=== PATIENT | female | born 1965 | race Caucasian/White ===

== ENCOUNTER 2016-10-28 07:52 | Inpatient (IN) | payer MEDICAID ==
[2016-10-28 08:25] LABS: UA w/ MICROSCOPIC CHARGE YES
[2016-10-28 08:27] LABS: BASOPHILS # (AUTO) 0.1 10^3/uL (0.0-0.1); BASOPHILS % (AUTO) 0.8 %; EOSINOPHILS % (AUTO) 0.1 %; HGB - HEMOGLOBIN 14.1 g/dL (12.0-16.0); LYMPHOCYTES # (AUTO) 1.5 10^3/uL (1.5-3.5); LYMPHOCYTES % (AUTO) 15.3 %; MEAN CORPUSCULAR HGB CONC 32.8 g/dL (32.0-36.0); MEAN CORPUSCULAR VOLUME 85.3 fL (81.0-99.0); MONOCYTES # (AUTO) 1.4 10^3/uL (0.0-1.0); MONOCYTES % (AUTO) 14.5 %; NEUTROPHILS # (AUTO) 6.7 10^3/uL (1.5-6.6); NEUTROPHILS % (AUTO) 69.3 %; NUCLEATED RED BLOOD CELLS AUTO 0.1 /100WBC; RED BLOOD COUNT 5.04 10^6/uL (4.20-5.40); RED CELL DISTRIBUTION WIDTH 18.2 % (12.0-15.0); UNCORRECTED WHITE BLOOD COUNT 9.7 x10^3/uL; WHITE BLOOD COUNT 9.7 x10^3/uL (4.8-10.8)
--- NOTE | 2016-10-28 08:28 | ED Physician Documentation ---
History of Present Illness - Stated complaint Stated Complaint: SOA/GENERAL WEAKNESS - Chief complaint Chief Complaint: Abd Pain - Additonal information Additional information: hx from pt 51 female HTN and DM type 2 not taking her diabetes meds for 6 months secondary to insurnace lapse now has insurance again but still not taking her meds ill for several weeks generally weak all over, nauseated, poor appetite, had a sore on her right inguinal region, urinary freq now sx are worse and she is profoundly weak and can barely sit up and is short of air no SAINI CP AP no fever cough diarrhea Review of Systems Constitutional: reports: Fatigue. denies: Fever, Chills Throat: reports: Other (dry mouth) Cardiac: denies: Chest pain / pressure Respiratory: reports: Dyspnea. denies: Cough GI: reports: Nausea, Vomiting. denies: Abdominal Pain, Diarrhea : reports: Frequency. denies: Dysuria Skin: reports: Lesions (better now) Neurologic: reports: Generalized weakness. denies: Headache Endocrine: denies: Easy bruising / bleeding Immunocompromised: denies: Immunocompromised PD PAST MEDICAL HISTORY - Past Medical History Past Medical History: Yes Cardiovascular: Hypertension Endocrine/Autoimmune: Type 2 diabetes - Past Surgical History Past Surgical History: No - Present Medications Home Medications: Ambulatory Orders Medication Instructions Recorded Confirmed Lisinopril/Hydrochlorothiazide 1 tab PO BID 10/28/16 10/28/16 [Lisinopril-Hctz 10-12.5 mg Tab] - Allergies Allergies/Adverse Reactions: Allergies Allergy/AdvReac Type Severity Reaction Status Date / Time ibuprofen Allergy Severe Anaphylaxis Verified 10/28/16 17:31 codeine AdvReac Hallucinati Verified 10/28/16 17:31 ons - Social History Does the pt smoke?: No Smoking Status: Never smoker Does the pt drink ETOH?: No Does the pt have substance abuse?: No - POLST Patient has POLST: No PD ED PE NORMAL - Vitals Vital signs reviewed: Yes - General General: Alert and oriented X 3 - HEENT HEENT: PERRL, Other (very dry, ketotic breath) - Neck Neck: Supple, no meningeal sign - Cardiac Cardiac: RRR (tachy) - Respiratory Respiratory: No respiratory distress, Clear bilaterally - Abdomen Abdomen: Soft, Non tender - Back Back: No spinal TTP, Other (small skin lesion lumbar regon s redness or tenderness, no infection) - Derm Derm: Other (what appeears to be a small healed abscess or ulceration to R inguinal region but no present infection, no foot lesions) - Extremities Extremities: No deformity, Normal ROM s pain, No edema - Neuro Neuro: Alert and oriented X 3 Results - Vitals Vitals: Vital Signs - 24 hr 10/28/16 10/28/16 10/28/16 07:59 08:31 09:15 Temperature 35.8 C L Heart Rate 127 H 109 H 106 H Respiratory 22 22 16 Rate Blood Pressure 103/70 113/82 H 104/62 O2 Saturation 100 98 100 10/28/16 11:54 Temperature Heart Rate 112 H Respiratory 20 Rate Blood Pressure 98/63 O2 Saturation 97 Oxygen O2 Source Room air - EKG (time done) 0812 Rate: Rate (enter#) Rhythm: Sinus tachycardia Benedict: Normal Intervals: Normal KS, Prolonged QT (borderline) - Labs Labs: Laboratory Tests 10/28/16 10/28/16 10/28/16 08:00 08:12 08:20 WBC 9.7 RBC 5.04 Hgb 14.1 Hct 43.0 MCV 85.3 MCH 28.0 MCHC 32.8 RDW 18.2 H Plt Count 319 MPV 8.0 Neut # 6.7 H Lymph # 1.5 [place] # 1.4 H Eos # 0.0 Baso # 0.1 Absolute Nucleated RBC 0.01 Nucleated RBCs 0.1 VBG pH VBG pCO2 VBG pO2 VBG HCO3 VBG Total CO2 VBG O2 Saturation VBG Base Excess Sodium Potassium Chloride Carbon Dioxide Anion Gap BUN Creatinine Estimated GFR (MDRD) Glucose POC Whole Bld Glucose 472 H Lactic Acid Calcium Total Bilirubin AST ALT Alkaline Phosphatase Troponin I Total Protein Albumin Globulin Albumin/Globulin Ratio Lipase Urine Color YELLOW Urine Clarity HAZY Urine pH 6.0 Ur Specific [place] >=1.030 H Urine Protein 30 H Urine Glucose (UA) 500 H Urine Ketones >=80 H Urine Occult Blood MODERATE H Urine Nitrite NEGATIVE Urine Bilirubin MODERATE H Urine Urobilinogen 0.2 (NORMAL) Ur Leukocyte Esterase NEGATIVE Urine RBC 6-10 H Urine WBC 0-3 Ur Squamous Epith Cells FEW Squamous Urine Bacteria Rare Urine Casts 3-5 Granular Casts Ur Microscopic Review INDICATED Urine Culture Comments NOT INDICATED Serum Ketones 07/26/17 07/26/17 07/26/17 08:20 08:20 08:25 WBC RBC Hgb Hct MCV MCH MCHC RDW Plt Count MPV Neut # Lymph # [place] # Eos # Baso # Absolute Nucleated RBC Nucleated RBCs VBG pH 7.233 L VBG pCO2 26.4 L VBG pO2 36.4 VBG HCO3 10.9 L VBG Total CO2 11.7 L VBG O2 Saturation 66.7 VBG Base Excess -14.8 L Sodium 127 L Potassium 3.0 L Chloride 90 L Carbon Dioxide 10 L* Anion Gap 27.0 H BUN 7 Creatinine 1.1 H Estimated GFR (MDRD) 52 L Glucose 449 H POC Whole Bld Glucose Lactic Acid Calcium 10.7 H Total Bilirubin 1.6 H AST 13 ALT 17 Alkaline Phosphatase 169 H Troponin I 0.04 Total Protein 8.4 H Albumin 3.9 Globulin 4.5 H Albumin/Globulin Ratio 0.9 L Lipase 31 Urine Color Urine Clarity Urine pH Ur Specific [place] Urine Protein Urine Glucose (UA) Urine Ketones Urine Occult Blood Urine Nitrite Urine Bilirubin Urine Urobilinogen Ur Leukocyte Esterase Urine RBC Urine WBC Ur Squamous Epith Cells Urine Bacteria Urine Casts Ur Microscopic Review Urine Culture Comments Serum Ketones MODERATE H 10/28/16 10/28/16 10/28/16 08:54 10:06 10:59 WBC RBC Hgb Hct MCV MCH MCHC RDW Plt Count MPV Neut # Lymph # [place] # Eos # Baso # Absolute Nucleated RBC Nucleated RBCs VBG pH VBG pCO2 VBG pO2 VBG HCO3 VBG Total CO2 VBG O2 Saturation VBG Base Excess Sodium Potassium Chloride Carbon Dioxide Anion Gap BUN Creatinine Estimated GFR (MDRD) Glucose POC Whole Bld Glucose 323 H 246 H Lactic Acid 1.6 Calcium Total Bilirubin AST ALT Alkaline Phosphatase Troponin I Total Protein Albumin Globulin Albumin/Globulin Ratio Lipase Urine Color Urine Clarity Urine pH Ur Specific [place] Urine Protein Urine Glucose (UA) Urine Ketones Urine Occult Blood Urine Nitrite Urine Bilirubin Urine Urobilinogen Ur Leukocyte Esterase Urine RBC Urine WBC Ur Squamous Epith Cells Urine Bacteria Urine Casts Ur Microscopic Review Urine Culture Comments Serum Ketones 10/28/16 10/28/16 10/28/16 11:31 12:03 12:37 WBC RBC Hgb Hct MCV MCH MCHC RDW Plt Count MPV Neut # Lymph # [place] # Eos # Baso # Absolute Nucleated RBC Nucleated RBCs VBG pH VBG pCO2 VBG pO2 VBG HCO3 VBG Total CO2 VBG O2 Saturation VBG Base Excess Sodium Potassium Chloride Carbon Dioxide Anion Gap BUN Creatinine Estimated GFR (MDRD) Glucose POC Whole Bld Glucose 218 H 180 H 181 H Lactic Acid Calcium Total Bilirubin AST ALT Alkaline Phosphatase Troponin I Total Protein Albumin Globulin Albumin/Globulin Ratio Lipase Urine Color Urine Clarity Urine pH Ur Specific [place] Urine Protein Urine Glucose (UA) Urine Ketones Urine Occult Blood Urine Nitrite Urine Bilirubin Urine Urobilinogen Ur Leukocyte Esterase Urine RBC Urine WBC Ur Squamous Epith Cells Urine Bacteria Urine Casts Ur Microscopic Review Urine Culture Comments Serum Ketones - Rads (name of study) CXR Radiology: See rad report (NACPD) PD MEDICAL DECISION MAKING - ED course ED course: pt is in DKA unusual because she believes she has type 2 DM states she was dx 5 yr ago in [facility] and started on metformin by PMD does not sound like she had prior medical care but still doubt type 1 would go undetected until pt was in her 40s regardless she is diabetic, hyperglycemic, AG acidosis and + ketones gave IVF and started insulin gtt and repleted K no inciting event or infection found will admit to ICU for further care and work up spoke to hospitalist at 11 AM - she will write orders glucose dropping quickly on 1u/kg/hr gtt (from 472 to 246 over 3 hr), dec rate to 6 U/hr, when at FSBS 200 will change IVF to D5 1/2 N with 20 K to clear ketones and acidosis Departure - Departure Disposition: 66 [facility] DC/Xfer Clinical Impression: Hypokalemia DKA (diabetic ketoacidoses) Qualifiers: Diabetes mellitus type: type 2 Diabetes mellitus complication detail: without coma Qualified Code(s): E13.10 - Other specified diabetes mellitus with ketoacidosis without coma Condition: Serious Discharge Date/Time: 10/28/16 14:39
[2016-10-28 08:29] LABS: BILIRUBIN,URINE MODERATE (NEGATIVE)
[2016-10-28 08:32] LABS: VBG BASE EXCESS -14.8 mmol/L (-2 - +2); VBG PH 7.233 (7.31-7.41); VBG TOTAL CO2 11.7 mmol/L (24-29)
[2016-10-28 08:33] LABS: VBG OXYGEN SATURATION 66.7 % (60-80)
[2016-10-28 08:34] LABS: UR CULTURE IF IND NOT INDICATED; WBC,URINE 0-3 /HPF (0-5)
[2016-10-28] MEDS ORDERED: SODIUM CHLORIDE 0.9% 1,000 ML IV ONE ×3 (08:37→11:13)
--- NOTE | 2016-10-28 08:41 | XRAY Preliminary Report ---
Exam: XR Chest 1 View IMPRESSION: Normal single view chest. [facility] SITE ID: [id number]
--- NOTE | 2016-10-28 08:43 | XRAY Report ---
EXAM: CHEST RADIOGRAPHY EXAM DATE: 10/28/2016 08:25 AM. CLINICAL HISTORY: Soa tachy. COMPARISON: None. TECHNIQUE: 1 view. FINDINGS: Lungs/Pleura: No focal opacities evident. No pleural effusion. No pneumothorax. Mediastinum: Within exam limitations, cardiomediastinal contour is normal. Other: None. IMPRESSION: Normal single view chest. [facility] Referring Provider Line: [phone] SITE ID: [id number]
[2016-10-28 08:44] LABS: ALBUMIN/GLOBULIN RATIO 0.9 (1.0-2.2); BILIRUBIN,TOTAL 1.6 mg/dL (0.2-1.0); BUN - BLOOD UREA NITROGEN 7 mg/dL (6-20); CALCIUM 10.7 mg/dL (8.5-10.3); CHLORIDE 90 mmol/L (101-111); CREATININE 1.1 mg/dL (0.4-1.0); GFR - MDRD 52 (>89); GLUCOSE 449 mg/dL (70-100); LIPASE 31 U/L (22-51); SODIUM 127 mmol/L (135-145); TOTAL PROTEIN 8.4 g/dL (6.7-8.2)
[2016-10-28 08:45] LABS: CARBON DIOXIDE - CO2 10 mmol/L (21-32)
[2016-10-28] MEDS ORDERED: INSULIN REGULAR HUMAN 100 UNIT in SODIUM CHLORIDE 0.9% 100ML 99 ML IV STA ×2 (08:51→11:01)
[2016-10-28] MEDS ORDERED: POTASSIUM CHLOR 10 MEQ/100 ML 100 ML IV ONE ×4 (08:51→13:28)
[2016-10-28] MEDS ORDERED: FAMOTIDINE 20 MG/2 ML VIAL IVP STA (08:54)
[2016-10-28] MEDS ORDERED: PROMETHAZINE INJ 12.5 MG in SODIUM CHLORIDE 0.9% 50 ML IV STA (08:54)
[2016-10-28] MEDS ORDERED: PROMETHAZINE 25 MG/1 ML VIAL ONE (09:00)
[2016-10-28] MEDS ORDERED: FAMOTIDINE 20 MG/2 ML VIAL ONE (09:00)
[2016-10-28] MEDS: D5.45NS W/20 MEQ KCL 1,000 ML IV SCH ×2 (11:36→19:47)
[2016-10-28 13:05] LABS: VBG BASE EXCESS -14.2 mmol/L (-2 - +2); VBG OXYGEN SATURATION 58.2 % (60-80); VBG PH 7.227 (7.31-7.41); VBG TOTAL CO2 12.9 mmol/L (24-29)
[2016-10-28 13:24] LABS: BUN - BLOOD UREA NITROGEN 6 mg/dL (6-20); CALCIUM 9.3 mg/dL (8.5-10.3); CHLORIDE 100 mmol/L (101-111); CREATININE 0.9 mg/dL (0.4-1.0); GFR - MDRD 66 (>89); GLUCOSE 153 mg/dL (70-100); POTASSIUM 2.6 mmol/L (3.5-5.0); SODIUM 131 mmol/L (135-145)
[2016-10-28 13:25] LABS: CARBON DIOXIDE - CO2 11 mmol/L (21-32)
--- NOTE | 2016-10-28 18:56 | HISTORY & PHYSICAL EXAMINATION ---
Chief Complaint - Chief Complaint Chief Complaint: See dictation. Imp: DKA, abd wound. History - Past Medical History Cardiovascular: reports: Hypertension Respiratory: reports: None Neuro: reports: None Endocrine/Autoimmune: reports: Type 2 diabetes GI: reports: None HEENT: reports: None Psych: reports: Anxiety Musculoskeletal: reports: None Derm: reports: None MRSA Hx?: No - POLST Patient has POLST: No Meds/Allgy - Home Medications Home Medications: Ambulatory Orders Medication Instructions Recorded Confirmed Blood Sugar Diagnostic [Glucometer 1 each MC TID #1 strip 10/31/16 11/03/16 Strips] Blood-Glucose Meter [Glucometer] 1 each MC DAILY #1 each 10/31/16 11/03/16 Escitalopram [Lexapro] 10 mg PO QPM #30 tablet 10/31/16 11/03/16 Insulin Aspart [NovoLOG] 6 unit SUBQ 0800,1200,1700,2100 #2 10/31/16 11/03/16 pen Insulin Glargine [Lantus Solostar] 25 unit SUBQ QPM #2 pen 10/31/16 11/03/16 Lisinopril/Hydrochlorothiazide 1 tab PO BID #60 tablet 10/31/16 11/03/16 [Lisinopril-Hctz 10-12.5 mg Tab] [place], Disposable [Needle] 1 each MC PRN PRN #1 dis.needle 10/31/16 11/03/16 metFORMIN [Glucophage] 500 mg PO BIDWM #60 tablet 10/31/16 11/03/16 Amox/Clav 875/125 [Augmentin] 1 each PO Q12H #14 tablet 11/03/16 HYDROcod/ACETAM 5/325 [[place] 5/325] 1 - 2 ea PO Q6H PRN #15 tablet 11/03/16 - Allergies Allergies/Adverse Reactions: Allergies Allergy/AdvReac Type Severity Reaction Status Date / Time ibuprofen Allergy Severe Anaphylaxis Verified 10/28/16 17:31 codeine AdvReac Hallucinati Verified 10/28/16 17:31 ons Exam - Vital Signs Vital Signs: Vital Signs x48h Temp Pulse Pulse Resp BP BP Pulse Ox 10/28/16 18:18 36.9 C 96/61 10/28/16 18:00 96 18 72/44 L 99 10/28/16 17:00 93 16 105/58 L 97 10/28/16 16:00 97 12 87/61 L 99 10/28/16 15:00 36.8 C 94 14 94/60 99 10/28/16 14:21 104 H 18 118/86 H 100 10/28/16 14:07 104 H 18 84/61 L 99 10/28/16 13:35 104 H 16 90/58 L 96 10/28/16 12:57 108 H 20 106/74 Conclusion/Plan - Lab Results Fish Bones: 10/28/16 08:20 10/31/16 08:25 Issues/Core Measures - Anticipated LOS Anticipated Stay Length: 2 or more midnights
[2016-10-28] MEDS ORDERED: HYDROcod/ACETAM 5/325 MG TABLET PO PRN (19:31)
[2016-10-28] MEDS ORDERED: ONDANSETRON 4 MG/2 ML VIAL IVP PRN (19:31)
[2016-10-28] MEDS ORDERED: ONDANSETRON ODT 4 MG TABLET TL PRN (19:31)
[2016-10-28] MEDS ORDERED: ACETAMINOPHEN 325 MG TABLET PO PRN (19:31)
[2016-10-28] MEDS ORDERED: SODIUM CHLORIDE FLUSH 0.9% 10 ML SYRINGE IVP PRN (19:31)
[2016-10-28] MEDS: SODIUM CHLORIDE FLUSH 0.9% 10 ML SYRINGE IVP SCH (19:58)
[2016-10-28] MEDS ORDERED: INSULIN REGULAR HUMAN 100 UNIT in SODIUM CHLORIDE 0.9% 100ML 99 ML IV SCH (20:00)
[2016-10-28 20:14] LABS: VBG BASE EXCESS -7.6 mmol/L (-2 - +2); VBG OXYGEN SATURATION 87.9 % (60-80); VBG PH 7.27 (7.31-7.41); VBG TOTAL CO2 20.1 mmol/L (24-29)
[2016-10-28 20:22] LABS: CALCIUM 8.8 mg/dL (8.5-10.3); CREATININE 0.8 mg/dL (0.4-1.0); GLUCOSE 146 mg/dL (70-100); MAGNESIUM 1.6 mg/dL (1.7-2.8); POTASSIUM 2.7 mmol/L (3.5-5.0)
[2016-10-28 21:15] LABS: HEMOGLOBIN A1C 1.75 g/dL
[2016-10-28] MEDS ORDERED: POTASSIUM PHOSPHATE 21 MMOL in SODIUM CHLORIDE 0.9% 250 ML IV ONE (22:00)
[2016-10-28] MEDS: MAGNESIUM OXIDE 400 MG TABLET PO SCH (22:30)
[2016-10-28] MEDS: INSULIN GLARGINE 300 UNIT/3 ML PEN SUBQ SCH (22:30)
[2016-10-28] MEDS: POTASSIUM CHLORIDE 20 MEQ TABLET PO SCH (22:30)
[2016-10-29] MEDS: SODIUM CHLORIDE FLUSH 0.9% 10 ML SYRINGE IVP SCH ×2 (00:32→18:22)
[2016-10-29] MEDS: NEUTRA-PHOS 250 MG TABLET PO SCH ×4 (00:32→10:32)
[2016-10-29] MEDS: POTASSIUM CHLORIDE 20 MEQ TABLET PO SCH (02:21)
[2016-10-29] MEDS: MAGNESIUM OXIDE 400 MG TABLET PO SCH ×5 (04:27→23:13)
[2016-10-29 06:52] LABS: MAGNESIUM 1.7 mg/dL (1.7-2.8); PHOSPHORUS 2.3 mg/dL (2.5-4.6); POTASSIUM 3.5 mmol/L (3.5-5.0)
[2016-10-29] MEDS ORDERED: POTASSIUM CHLORIDE 20 MEQ TABLET PO ONE ×2 (06:57→19:30)
[2016-10-29 07:43] LABS: HEMOGLOBIN A1C 1.72 g/dL
[2016-10-29] MEDS: INSULIN ASPART 300 UNIT/3 ML PEN SUBQ SCH ×4 (08:38→20:49)
[2016-10-29] MEDS: ENOXAPARIN 40 MG/0.4 ML SYRINGE SUBQ SCH (08:39)
[2016-10-29 15:57] LABS: MAGNESIUM 1.6 mg/dL (1.7-2.8); PHOSPHORUS 1.5 mg/dL (2.5-4.6); POTASSIUM 3.2 mmol/L (3.5-5.0)
[2016-10-29] MEDS ORDERED: POTASSIUM PHOSPHATE 21 MMOL in SODIUM CHLORIDE 0.9% 250 ML IV ONE (16:34)
[2016-10-29] MEDS: POTASSIUM CHLORIDE 20 MEQ/15 ML UDC PO ONE ×2 (18:22→18:53)
--- NOTE | 2016-10-29 20:18 | PROVIDER PROGRESS NOTE ---
Assessment/Plan - Problem List (1) DKA (diabetic ketoacidoses) Qualifiers: Diabetes mellitus type: type 2 Diabetes mellitus complication detail: without coma Qualified Code(s): E13.10 - Other specified diabetes mellitus with ketoacidosis without coma Assessment/Plan: Glu and electrolytes improved. Pt off Insulin drip. Will continue to adjust Insulin dose. Continue with Diabetic Teaching. Pt stable for transfer to Med/ Surg unit. (2) Anxiety and depression Assessment/Plan: Pt and daughter report that Pt was on Zoloft in past, was tapered off and she was only using Ativan prn anxiety. I discussed options of management. Will start Lexapro. (3) Wound, open, abdominal wall, anterior Assessment/Plan: No new complaints. Continue topical treatment. - Current Meds Current Meds: Current Medications Generic Name Dose Route Start Last Admin Trade Name Freq PRN Reason Stop Dose Admin Enoxaparin Sodium 40 mg 10/29/16 09:00 10/29/16 08:39 Lovenox SUBQ 40 mg DAILY JACQUELINE Administration Potassium Phosphate 21 mmol/ 257 mls @ 64 mls/hr 10/29/16 16:34 10/29/16 18:22 Sodium Chloride IV 10/29/16 20:34 64 mls/hr ONCE ONE Administration Protocol Insulin Aspart 1 - 9 unit 10/29/16 08:00 10/29/16 18:24 Novolog SUBQ 7 unit 0800,1200,1700,2100 JACQUELINE Administration Protocol Insulin Glargine 20 unit 10/28/16 21:30 10/28/16 22:30 Lantus Solostar SUBQ 20 unit QPM JACQUELINE Administration Magnesium Oxide 400 mg 10/29/16 17:00 10/29/16 18:24 Mag Ox PO 10/29/16 23:01 Not Given Q6H JACQUELINE Protocol Ondansetron HCl 4 mg 10/28/16 19:31 10/29/16 18:35 Zofran Inj IVP 4 mg Q6HR PRN Administration Nausea / Vomiting Sodium Chloride 10 ml 10/28/16 22:00 10/29/16 18:22 Normal Saline Flush 0.9% IVP 10 ml Q8HR JACQUELINE Administration - Lab Result Fish Bone Diagrams: 10/28/16 08:20 10/29/16 15:26 - Additional Planning My Orders: My Active Orders 10/29/16 06:20 CUL, MRSA SCREEN [RM] Urgent 10/29/16 08:22 Diabetic Education [RC] DAILY 10/29/16 16:34 Potassium Phosphate 21 mmol Sodium Chloride 0.9% [Normal Saline 0.9%] 250 ml IV ONCE 10/29/16 17:00 Magnesium Oxide [Mag Ox] 400 mg PO Q6H Subjective - Subjective Patient Reports: Other (Pt less fatigued, was able to sit in chair and walk to BR. Pt tearful due to slow progress. Pt was receptive to Diabetic tEACHING TODAY , WITH DAUGHTER IN ROOM.) Objective Vital Signs: Vital Signs - 24 hr 10/28/16 10/28/16 10/28/16 21:00 22:00 23:00 Temperature 36.8 C Heart Rate [ 88 94 98 Monitoring electrodes] Respiratory 11 L 14 16 Rate Blood Pressure 93/56 L 92/59 L 97/59 L [Brachial artery] O2 Saturation 98 100 98 10/29/16 10/29/16 10/29/16 00:00 00:37 01:00 Temperature Heart Rate [ 91 96 Monitoring electrodes] Respiratory 15 13 Rate Blood Pressure 82/54 L 103/67 92/56 L [Brachial artery] O2 Saturation 95 94 10/29/16 10/29/16 10/29/16 02:00 02:32 03:00 Temperature 36.7 C Heart Rate [ 88 95 Monitoring electrodes] Respiratory 15 21 Rate Blood Pressure 89/60 L 105/76 87/54 L [Brachial artery] O2 Saturation 97 94 10/29/16 10/29/16 10/29/16 04:00 05:00 06:00 Temperature Heart Rate [ 94 94 88 Monitoring electrodes] Respiratory 16 14 14 Rate Blood Pressure 87/55 L 82/54 L 97/70 [Brachial artery] O2 Saturation 94 96 94 10/29/16 10/29/16 10/29/16 06:55 08:00 09:00 Temperature 97.7 C H Heart Rate [ 104 H 98 100 Monitoring electrodes] Respiratory 11 L 15 13 Rate Blood Pressure 118/98 H 109/79 [Brachial artery] O2 Saturation 100 100 99 10/29/16 10/29/16 10/29/16 10:00 11:00 12:00 Temperature 97.5 C H Heart Rate [ 120 H 104 H 112 H Monitoring electrodes] Respiratory 18 13 20 Rate Blood Pressure 102/67 112/69 120/79 [Brachial artery] O2 Saturation 99 98 100 10/29/16 10/29/16 10/29/16 13:00 14:00 16:00 Temperature 36.8 C Heart Rate [ 109 H 104 H 96 Monitoring electrodes] Respiratory 19 14 20 Rate Blood Pressure 132/76 H 109/83 H 103/60 [Brachial artery] O2 Saturation 98 99 100 Oxygen O2 Source Room air I&O (Last 24 Hrs): Intake and Output Totals x24h 10/27/16 10/28/16 10/29/16 23:59 23:59 23:59 Intake Total 1456 1112 Output Total 450 1050 Balance 1006 62 General: Alert, Other (tEARFUL) HEENT: Mucous membr. moist/pink Neck: Supple Neuro: Alert Cardiovascular: No murmurs Respiratory: No respiratory distress Abdomen: Other (oBESE WITH PANNUS, SOFT) Extremities: No edema - Results Results: Laboratory Results WBC 9.7 x10^3/uL (4.8-10.8) 10/28/16 08:20 RBC 5.04 10^6/uL (4.20-5.40) 10/28/16 08:20 Hgb 14.1 g/dL (12.0-16.0) 10/28/16 08:20 Hct 43.0 % (37.0-47.0) 10/28/16 08:20 MCV 85.3 fL (81.0-99.0) 10/28/16 08:20 MCH 28.0 pg (27.0-31.0) 10/28/16 08:20 MCHC 32.8 g/dL (32.0-36.0) 10/28/16 08:20 RDW 18.2 % (12.0-15.0) H 10/28/16 08:20 Plt Count 319 10^3/uL (130-450) 10/28/16 08:20 MPV 8.0 fL (7.9-10.8) 10/28/16 08:20 Neut # 6.7 10^3/uL (1.5-6.6) H 10/28/16 08:20 Lymph # 1.5 10^3/uL (1.5-3.5) 10/28/16 08:20 [place] # 1.4 10^3/uL (0.0-1.0) H 10/28/16 08:20 Eos # 0.0 10^3/uL (0.0-0.7) 10/28/16 08:20 Baso # 0.1 10^3/uL (0.0-0.1) 10/28/16 08:20 Absolute Nucleated RBC 0.01 x10^3/uL 10/28/16 08:20 Nucleated RBCs 0.1 /100WBC 10/28/16 08:20 VBG pH 7.270 (7.31-7.41) L 10/28/16 20:04 VBG pCO2 42.0 mmHg (41-51) 10/28/16 20:04 VBG pO2 50.5 mmHg (25-47) H 10/28/16 20:04 VBG HCO3 18.9 mmol/L (23-28) L 10/28/16 20:04 VBG Total CO2 20.1 mmol/L (24-29) L 10/28/16 20:04 VBG O2 Saturation 87.9 % (60-80) H 10/28/16 20:04 VBG Base Excess -7.6 mmol/L (-2 - +2) L 10/28/16 20:04 Sodium 130 mmol/L (135-145) L 10/28/16 20:04 Potassium 3.2 mmol/L (3.5-5.0) L 10/29/16 15:26 Chloride 103 mmol/L (101-111) 10/28/16 20:04 Carbon Dioxide 19 mmol/L (21-32) L 10/28/16 20:04 Anion Gap 8.0 (6-13) 10/28/16 20:04 BUN 6 mg/dL (6-20) 10/28/16 20:04 Creatinine 0.8 mg/dL (0.4-1.0) 10/28/16 20:04 Estimated GFR (MDRD) 75 (>89) L 10/28/16 20:04 Glucose 146 mg/dL (70-100) H 10/28/16 20:04 POC Whole Bld Glucose 295 mg/dL (70 - 100) H 10/29/16 16:44 Glycated Hemoglobin 15.3 % (4.6-6.2) H 10/29/16 06:23 Estim Average Glucose 392 (70-100) H 10/29/16 06:23 Lactic Acid 1.6 mmol/L (0.5-2.2) 10/28/16 08:54 Calcium 8.8 mg/dL (8.5-10.3) 10/28/16 20:04 Phosphorus 1.5 mg/dL (2.5-4.6) L 10/29/16 15:26 Magnesium 1.6 mg/dL (1.7-2.8) L 10/29/16 15:26 Total Bilirubin 1.6 mg/dL (0.2-1.0) H 10/28/16 08:20 AST 13 IU/L (10-42) 10/28/16 08:20 ALT 17 IU/L (10-60) 10/28/16 08:20 Alkaline Phosphatase 169 IU/L (42-121) H 10/28/16 08:20 Troponin I 0.04 ng/mL (<0.49) 10/28/16 08:20 Total Protein 8.4 g/dL (6.7-8.2) H 10/28/16 08:20 Albumin 3.9 g/dL (3.2-5.5) 10/28/16 08:20 Globulin 4.5 g/dL (2.1-4.2) H 10/28/16 08:20 Albumin/Globulin Ratio 0.9 (1.0-2.2) L 10/28/16 08:20 Lipase 31 U/L (22-51) 10/28/16 08:20 Urine Color YELLOW 10/28/16 08:00 Urine Clarity HAZY (CLEAR) 10/28/16 08:00 Urine pH 6.0 PH (5.0-7.5) 10/28/16 08:00 Ur Specific [place] >=1.030 (1.002-1.030) H 10/28/16 08:00 Urine Protein 30 mg/dL (NEGATIVE) H 10/28/16 08:00 Urine Glucose (UA) 500 mg/dL (NEGATIVE) H 10/28/16 08:00 Urine Ketones >=80 mg/dL (NEGATIVE) H 10/28/16 08:00 Urine Occult Blood MODERATE (NEGATIVE) H 10/28/16 08:00 Urine Nitrite NEGATIVE (NEGATIVE) 10/28/16 08:00 Urine Bilirubin MODERATE (NEGATIVE) H 10/28/16 08:00 Urine Urobilinogen 0.2 (NORMAL) E.U./dL (NORMAL) 10/28/16 08:00 Ur Leukocyte Esterase NEGATIVE (NEGATIVE) 10/28/16 08:00 Urine RBC 6-10 /HPF (0-5) H 10/28/16 08:00 Urine WBC 0-3 /HPF (0-5) 10/28/16 08:00 Ur Squamous Epith Cells FEW Squamous (<= Few) 10/28/16 08:00 Urine Bacteria Rare /HPF (None Seen) 10/28/16 08:00 Urine Casts 6-10 Hyaline Casts /LPF3-5 Granular Casts /LPF 10/28/16 08:00 Urine Casts 6-10 Hyaline Casts /LPF3-5 Granular Casts /LPF 10/28/16 08:00 Ur Microscopic Review INDICATED 10/28/16 08:00 Urine Culture Comments NOT INDICATED 10/28/16 08:00 Serum Ketones MODERATE (NEGATIVE) H 10/28/16 20:04
[2016-10-29] MEDS: INSULIN GLARGINE 300 UNIT/3 ML PEN SUBQ SCH (20:48)
[2016-10-30 05:04] LABS: MAGNESIUM 1.9 mg/dL (1.7-2.8); PHOSPHORUS 2.9 mg/dL (2.5-4.6); POTASSIUM 3.3 mmol/L (3.5-5.0)
[2016-10-30] MEDS ORDERED: INSULIN GLARGINE 300 UNIT/3 ML PEN SUBQ SCH ×3 (05:56→21:00)
[2016-10-30] MEDS ORDERED: POTASSIUM CHLORIDE 20 MEQ TABLET PO SCH (06:30)
[2016-10-30] MEDS ORDERED: POTASSIUM CHLORIDE 20 MEQ TABLET PO ONE (07:09)
[2016-10-30] MEDS: SODIUM CHLORIDE FLUSH 0.9% 10 ML SYRINGE IVP SCH ×4 (07:13→22:19)
[2016-10-30] MEDS: INSULIN ASPART 300 UNIT/3 ML PEN SUBQ SCH ×4 (08:35→21:21)
[2016-10-30] MEDS: ENOXAPARIN 40 MG/0.4 ML SYRINGE SUBQ SCH (08:36)
[2016-10-30] MEDS: metFORMIN 500 MG TABLET PO SCH (17:20)
[2016-10-30] MEDS ORDERED: FAMOTIDINE 20 MG TABLET ONE (18:51)
[2016-10-30] MEDS: FAMOTIDINE 20 MG TABLET PO SCH (18:54)
--- NOTE | 2016-10-30 18:58 | PROVIDER PROGRESS NOTE ---
Assessment/Plan - Problem List (1) DKA (diabetic ketoacidoses) Qualifiers: Diabetes mellitus type: type 2 Diabetes mellitus complication detail: without coma Qualified Code(s): E13.10 - Other specified diabetes mellitus with ketoacidosis without coma Assessment/Plan: Resolved. Pt ambulated today without difficulty. Pt participating in diabetic teaching. Will start Metformin and increase long-acting Insulin from 20 U to 25 U for excessive glu level. Possible DCh tomorrow. (2) Anxiety and depression Assessment/Plan: Im[proved. Pt on Lexapro. (3) Wound, open, abdominal wall, anterior Assessment/Plan: No complaints, stable. - Current Meds Current Meds: Current Medications Generic Name Dose Route Start Last Admin Trade Name Freq PRN Reason Stop Dose Admin Enoxaparin Sodium 40 mg 10/29/16 09:00 10/30/16 08:36 Lovenox SUBQ 40 mg DAILY JACQUELINE Administration Insulin Aspart 1 - 9 unit 10/29/16 08:00 10/30/16 17:21 Novolog SUBQ 7 unit 0800,1200,1700,2100 JACQUELINE Administration Protocol Metformin HCl 500 mg 10/30/16 17:00 10/30/16 17:20 Glucophage PO 500 mg BIDWM JACQUELINE Administration Ondansetron HCl 4 mg 10/28/16 19:31 10/29/16 18:35 Zofran Inj IVP 4 mg Q6HR PRN Administration Nausea / Vomiting Sodium Chloride 10 ml 10/28/16 22:00 10/30/16 17:21 Normal Saline Flush 0.9% IVP 10 ml Q8HR JACQUELINE Administration - Lab Result Fish Bone Diagrams: 10/28/16 08:20 10/30/16 04:29 - Additional Planning My Orders: My Active Orders 10/30/16 10:01 Cultural Swab [RC] .ONCE 10/30/16 17:00 metFORMIN [Glucophage] 500 mg PO BIDWM 10/30/16 21:00 Escitalopram [Lexapro] 10 mg PO QPM Famotidine [Pepcid] 20 mg PO BID Insulin Glargine [Lantus Solostar] 25 unit SUBQ QPM Objective Vital Signs: Vital Signs - 24 hr 10/29/16 10/30/16 10/30/16 20:00 00:00 03:55 Temperature 36.9 C 36.8 C 36.8 C Heart Rate [ 103 H 98 102 H Monitoring electrodes] Respiratory 18 18 19 Rate Blood Pressure 114/86 H 110/74 127/67 [Brachial artery] O2 Saturation 97 98 97 10/30/16 10/30/16 10/30/16 07:59 11:26 16:00 Temperature 36.9 C 36.8 C 37.0 C Heart Rate [ 65 97 98 Monitoring electrodes] Respiratory 18 20 18 Rate Blood Pressure 131/75 H 125/75 96/58 L [Brachial artery] O2 Saturation 100 99 100 Oxygen O2 Source Room air I&O (Last 24 Hrs): Intake and Output Totals x24h 10/28/16 10/29/16 10/30/16 23:59 23:59 23:59 Intake Total 1456 1112 1430 Output Total 450 1050 600 Balance 1006 62 830 - Results Results: Laboratory Results WBC 9.7 x10^3/uL (4.8-10.8) 10/28/16 08:20 RBC 5.04 10^6/uL (4.20-5.40) 10/28/16 08:20 Hgb 14.1 g/dL (12.0-16.0) 10/28/16 08:20 Hct 43.0 % (37.0-47.0) 10/28/16 08:20 MCV 85.3 fL (81.0-99.0) 10/28/16 08:20 MCH 28.0 pg (27.0-31.0) 10/28/16 08:20 MCHC 32.8 g/dL (32.0-36.0) 10/28/16 08:20 RDW 18.2 % (12.0-15.0) H 10/28/16 08:20 Plt Count 319 10^3/uL (130-450) 10/28/16 08:20 MPV 8.0 fL (7.9-10.8) 10/28/16 08:20 Neut # 6.7 10^3/uL (1.5-6.6) H 10/28/16 08:20 Lymph # 1.5 10^3/uL (1.5-3.5) 10/28/16 08:20 [place] # 1.4 10^3/uL (0.0-1.0) H 10/28/16 08:20 Eos # 0.0 10^3/uL (0.0-0.7) 10/28/16 08:20 Baso # 0.1 10^3/uL (0.0-0.1) 10/28/16 08:20 Absolute Nucleated RBC 0.01 x10^3/uL 10/28/16 08:20 Nucleated RBCs 0.1 /100WBC 10/28/16 08:20 VBG pH 7.270 (7.31-7.41) L 10/28/16 20:04 VBG pCO2 42.0 mmHg (41-51) 10/28/16 20:04 VBG pO2 50.5 mmHg (25-47) H 10/28/16 20:04 VBG HCO3 18.9 mmol/L (23-28) L 10/28/16 20:04 VBG Total CO2 20.1 mmol/L (24-29) L 10/28/16 20:04 VBG O2 Saturation 87.9 % (60-80) H 10/28/16 20:04 VBG Base Excess -7.6 mmol/L (-2 - +2) L 10/28/16 20:04 Sodium 130 mmol/L (135-145) L 10/28/16 20:04 Potassium 3.3 mmol/L (3.5-5.0) L 10/30/16 04:29 Chloride 103 mmol/L (101-111) 10/28/16 20:04 Carbon Dioxide 19 mmol/L (21-32) L 10/28/16 20:04 Anion Gap 8.0 (6-13) 10/28/16 20:04 BUN 6 mg/dL (6-20) 10/28/16 20:04 Creatinine 0.8 mg/dL (0.4-1.0) 10/28/16 20:04 Estimated GFR (MDRD) 75 (>89) L 10/28/16 20:04 Glucose 146 mg/dL (70-100) H 10/28/16 20:04 POC Whole Bld Glucose 284 mg/dL (70 - 100) H 10/30/16 17:16 Glycated Hemoglobin 15.3 % (4.6-6.2) H 10/29/16 06:23 Estim Average Glucose 392 (70-100) H 10/29/16 06:23 Lactic Acid 1.6 mmol/L (0.5-2.2) 10/28/16 08:54 Calcium 8.8 mg/dL (8.5-10.3) 10/28/16 20:04 Phosphorus 2.9 mg/dL (2.5-4.6) 10/30/16 04:29 Magnesium 1.9 mg/dL (1.7-2.8) 10/30/16 04:29 Total Bilirubin 1.6 mg/dL (0.2-1.0) H 10/28/16 08:20 AST 13 IU/L (10-42) 10/28/16 08:20 ALT 17 IU/L (10-60) 10/28/16 08:20 Alkaline Phosphatase 169 IU/L (42-121) H 10/28/16 08:20 Troponin I 0.04 ng/mL (<0.49) 10/28/16 08:20 Total Protein 8.4 g/dL (6.7-8.2) H 10/28/16 08:20 Albumin 3.9 g/dL (3.2-5.5) 10/28/16 08:20 Globulin 4.5 g/dL (2.1-4.2) H 10/28/16 08:20 Albumin/Globulin Ratio 0.9 (1.0-2.2) L 10/28/16 08:20 Lipase 31 U/L (22-51) 10/28/16 08:20 Urine Color YELLOW 10/28/16 08:00 Urine Clarity HAZY (CLEAR) 10/28/16 08:00 Urine pH 6.0 PH (5.0-7.5) 10/28/16 08:00 Ur Specific [place] >=1.030 (1.002-1.030) H 10/28/16 08:00 Urine Protein 30 mg/dL (NEGATIVE) H 10/28/16 08:00 Urine Glucose (UA) 500 mg/dL (NEGATIVE) H 10/28/16 08:00 Urine Ketones >=80 mg/dL (NEGATIVE) H 10/28/16 08:00 Urine Occult Blood MODERATE (NEGATIVE) H 10/28/16 08:00 Urine Nitrite NEGATIVE (NEGATIVE) 10/28/16 08:00 Urine Bilirubin MODERATE (NEGATIVE) H 10/28/16 08:00 Urine Urobilinogen 0.2 (NORMAL) E.U./dL (NORMAL) 10/28/16 08:00 Ur Leukocyte Esterase NEGATIVE (NEGATIVE) 10/28/16 08:00 Urine RBC 6-10 /HPF (0-5) H 10/28/16 08:00 Urine WBC 0-3 /HPF (0-5) 10/28/16 08:00 Ur Squamous Epith Cells FEW Squamous (<= Few) 10/28/16 08:00 Urine Bacteria Rare /HPF (None Seen) 10/28/16 08:00 Urine Casts 6-10 Hyaline Casts /LPF3-5 Granular Casts /LPF 10/28/16 08:00 Urine Casts 6-10 Hyaline Casts /LPF3-5 Granular Casts /LPF 10/28/16 08:00 Ur Microscopic Review INDICATED 10/28/16 08:00 Urine Culture Comments NOT INDICATED 10/28/16 08:00 Serum Ketones MODERATE (NEGATIVE) H 10/28/16 20:04
[2016-10-30] MEDS ORDERED: ESCITALOPRAM 10 MG TABLET PO SCH ×2 (21:00)
--- NOTE | 2016-10-31 07:49 | Discharge Plan ---
Discharge Plan Disposition: Home, Self Care Condition: Good Prescriptions: Blood-Glucose Meter [Glucometer] 1 each MC DAILY #1 each Blood Sugar Diagnostic [Glucometer Strips] 1 each MC TID #1 strip metFORMIN [Glucophage] 500 mg PO BIDWM #60 tablet Insulin Glargine [Lantus Solostar] 25 unit SUBQ QPM #2 pen Escitalopram [Lexapro] 10 mg PO QPM #30 tablet Lisinopril/Hydrochlorothiazide [Lisinopril-Hctz 10-12.5 mg Tab] 1 tab PO BID # 60 tablet [place], Disposable [Needle] 1 each MC PRN PRN #1 dis.needle PRN Reason: Hyperglycemica Insulin Aspart [NovoLOG] 6 unit SUBQ 0800,1200,1700,2100 #2 pen Activity Restrictions: Activity as Tolerated Shower Restrictions: No Driving Restrictions: No Instruction Topics: Metformin tablets, Escitalopram tablets, Insulin Aspart injection, Insulin Glargine injection, Hydrochlorothiazide HCTZ Lisinopril tablets Additional Instructions or Follow Up instructions: you were admitted for diabetic ketoacidosis. This is caused by severely high glucose levels. We presume that occurred because you were unable to take your medicines. We have given you new prescriptions. Please take as directed until you establish yourself with a new primary care provider. Follow a low carbohydrate diet closely to avoid recurrence of the ketoacidosis. Please see your new primary care provider NAYLA. Follow-Up Care: [facility] - Diabetes Ed No Smoking: If you smoke, Please STOP! Call for help.
[2016-10-31 07:53] VITALS: BP 117/79
[2016-10-31] MEDS: SODIUM CHLORIDE FLUSH 0.9% 10 ML SYRINGE IVP SCH (08:06)
[2016-10-31] MEDS: INSULIN ASPART 300 UNIT/3 ML PEN SUBQ SCH (08:06)
[2016-10-31] MEDS: metFORMIN 500 MG TABLET PO SCH (08:07)
[2016-10-31] MEDS: FAMOTIDINE 20 MG TABLET PO SCH (08:07)
[2016-10-31] MEDS: ENOXAPARIN 40 MG/0.4 ML SYRINGE SUBQ SCH (08:07)
[2016-10-31 08:44] LABS: BUN - BLOOD UREA NITROGEN < 5 mg/dL (6-20); CALCIUM 9.4 mg/dL (8.5-10.3); CARBON DIOXIDE - CO2 27 mmol/L (21-32); CHLORIDE 96 mmol/L (101-111); CREATININE 0.6 mg/dL (0.4-1.0); GFR - MDRD 105 (>89); GLUCOSE 256 mg/dL (70-100); POTASSIUM 3.8 mmol/L (3.5-5.0); SODIUM 133 mmol/L (135-145)
--- NOTE | 2016-11-12 07:02 | DISCHARGE SUMMARY ---
DATE OF ADMISSION: 10/28/2016 DATE OF DISCHARGE: 10/31/2016 DISCHARGE DIAGNOSES 1. Diabetic ketoacidosis. 2. Type 2 diabetes mellitus, uncontrolled, with complications of proteinuria not on long-term insulin . 3. Electrolyte abnormalities. 4. Acute kidney injury. 5. Dehydration. 6. Hypertension. 7. Anxiety. DISCHARGE MEDICATIONS 1. Metformin 500 mg p.o. b.i.d. 2. Lantus 25 units subcutaneous q.p.m. 3. Lexapro 10 mg p.o. q.p.m. 4. Lisinopril with hydrochlorothiazide 1 tablet b.i.d. 5. NovoLog insulin 6 units subcutaneous a.c. t.i.d. 6. Glucometer. 7. Glucometer strips. 8. Insulin needles. PRINCIPAL PROCEDURE: Chest x-ray, showing no infiltrates. HOSPITAL COURSE: I am discharging the patient after meeting her only this morning and reviewing the c reddy quickly. She is a morbidly obese, pleasant white female who moved to this area 6 months ago and because of insurance reasons was unable to fill her medications and has been without her medications for diabetes for the last 6 months. She has also been without her medications for anxiety as well. Karoline baum has been ill for several weeks with weakness, nausea, poor appetite, a right groin sore, and urinar y frequency. Her symptoms have gotten so severe that she is weak, can barely sit up, and is short of breath. She denied chest pain or palpitations. No fever, no diarrhea. No abdominal pain. She has had no neurological complaints. She presented with this history to Dr. Brink in the emergency room, and she was mildly hypothermic a t 35.8, tachycardic at 127, respiratory rate 22 with a blood pressure 103/70. Pertinent findings incl uded a weak, morbidly obese female with either a small healed abscess or ulceration in the right ingu inal region but no present infection. No foot infection. Laboratory studies in the emergency room showed her to be hyponatremic, hypokalemic with acute kidney injury and a creatinine of 1.1. Random glucose 449, and she had ketones. Calcium was elevated at 10. 7, total bilirubin elevated at 1.6. Troponin is negative at 0.04. She states that she is a type 1 diabetic, but it was not until she was diagnosed in her 40s so that d iagnosis may be unlikely. She was treated as a type 2 uncontrolled diabetic not on long-term insulin and begun on insulin drip in the ICU. Electrolytes were supplemented and hyponatremia was treated wit h aggressive hydration. This also sufficed to treat the acute kidney injury with dehydration. She was able to be transitioned quickly to insulin in the form of Lantus as well as sliding scale. By the ti me of discharge, sodium was 133, potassium was normal at 3.8, and creatinine had normalized at 0.6. She did not need treatment for the right groin inguinal area. Lexapro was resumed instead of Zoloft f or her anxiety. DVT prophylaxis was with Lovenox. After being seen by Nutrition Services, and having her medications refilled, the patient was discharg ed in stable condition with instructions to please establish herself with a primary care provider. Karoline baum identified the office of Karolyn Viera as a person she was going to go see. Temperature was 36.9, hea rt rate 89, blood pressure 117/79, respirations 20, 99% on room air. She was a pleasant, cooperative, tall, morbidly obese female in no acute distress. Lungs are clear. Heart with a regular rate and rhy thm. The abdomen is obese, soft, nontender. The right groin lesion was healed closed over with no flu ctuance, redness, heat. On the day of discharge, sodium was 133, potassium 3.8, BUN less than 5, crea tinine 0.6. Blood cultures were negative from admission. Prescriptions as listed above were called into a local pharmacy. She says that she now has insurance that would be able to pay for these above supplies. JOB #: [id number] EXT JOB #:[id number]
== END 2016-10-31 11:21 | disposition home or self-care (01) | DRG 638 ==
LOC: ED 07:52 → MS3 12:52 → ICU 14:29
PROVIDERS: ADMIT Internal Medicine; ATTEND Specialist
DX: E13.10 Other specified diabetes mellitus with ketoacidosis without coma (principal); N17.9 Acute kidney failure, unspecified; Z68.41 Body mass index [BMI] 40.0-44.9, adult; E86.0 Dehydration; E87.1 Hypo-osmolality and hyponatremia; E87.6 Hypokalemia; R17 Unspecified jaundice; E66.9 Obesity, unspecified; Z79.4 Long term (current) use of insulin; I10 Essential (primary) hypertension; F41.9 Anxiety disorder, unspecified; F32.9 Major depressive disorder, single episode, unspecified; E87.8 Other disorders of electrolyte and fluid balance, not elsewhere classified; S31.103A Unspecified open wound of abdominal wall, right lower quadrant without penetration into peritoneal cavity, initial encounter; X58.XXXA Exposure to other specified factors, initial encounter; Z91.14 Patient's other noncompliance with medication regimen
CPT/HCPCS: 36415; 71010; 80048; 80053; 81001; 81003; 82009; 82803; 82947; 83036; 83605; 83690; 83735; 84100; 84132; 84484; 85025; 87040; 87081; 87086; 87150; 87640; 93005; 96361; 96365; 96368; 96375; 99285

== ENCOUNTER 2016-11-03 04:53 | Emergency (ER) | payer MEDICAID ==
--- NOTE | 2016-11-03 05:46 | ED Physician Documentation ---
PD HPI HEADACHE - Stated complaint Stated Complaint: FACIAL PAIN,LT EAR PAIN - Chief complaint Chief Complaint: General - History obtained from History obtained from: Patient - History of Present Illness Timing - onset: How many days ago (3) Timing - duration: Days Timing - details: Gradual onset, Constant, Waxing and waning Pain level now: 8 Worst headache ever?: No: Worst headache ever? Location: Left Quality: Throbbing, Aching Associated symptoms: No: Fever, Stiff neck, Nausea, Vomiting, Weakness, Numbness Improved by: Nothing Worsened by: Other (no exacerbating factors) Similar symptoms before: Diagnosis (similar to previous episodes of sinusitis, although this is unusually severe pain for her sinusitis) Recently seen: Not recently seen - Additional information Additional information: c/o left-sided facial pain that is centered around her left maxillary and frontal sinuses (she points to these areas), sinus congestion, and left ear pain Review of Systems Constitutional: denies: Fever Eyes: reports: Reviewed and negative Ears: reports: Ear pain. denies: Loss of hearing, Drainage/discharge, Tinnitus/ ringing Nose: reports: Sinus pressure / pain PD PAST MEDICAL HISTORY - Past Medical History Cardiovascular: Hypertension Respiratory: None Neuro: None Endocrine/Autoimmune: Type 2 diabetes GI: None HEENT: None Psych: Anxiety Musculoskeletal: None Derm: None - Past Surgical History Past Surgical History: No - Present Medications Home Medications: Ambulatory Orders Medication Instructions Recorded Confirmed Blood Sugar Diagnostic [Glucometer 1 each TID #1 strip 10/31/16 11/03/16 Strips] Blood-Glucose Meter [Glucometer] 1 each DAILY #1 each 10/31/16 11/03/16 Escitalopram [Lexapro] 10 mg PO QPM #30 tablet 10/31/16 11/03/16 Insulin Aspart [NovoLOG] 6 unit SUBQ 0800,1200,1700,2100 #2 10/31/16 11/03/16 pen Insulin Glargine [Lantus Solostar] 25 unit SUBQ QPM #2 pen 10/31/16 11/03/16 Lisinopril/Hydrochlorothiazide 1 tab PO BID #60 tablet 10/31/16 11/03/16 [Lisinopril-Hctz 10-12.5 mg Tab] [place], Disposable [Needle] 1 each PRN PRN #1 dis.needle 10/31/16 11/03/16 metFORMIN [Glucophage] 500 mg PO BIDWM #60 tablet 10/31/16 11/03/16 Amox/Clav 875/125 [Augmentin] 1 each PO Q12H #14 tablet 11/03/16 HYDROcod/ACETAM 5/325 [[place] 5/325] 1 - 2 ea PO Q6H PRN #15 tablet 11/03/16 - Allergies Allergies/Adverse Reactions: Allergies Allergy/AdvReac Type Severity Reaction Status Date / Time ibuprofen Allergy Severe Anaphylaxis Verified 10/28/16 17:31 codeine AdvReac Hallucinati Verified 10/28/16 17:31 ons - Social History Does the pt smoke?: No Smoking Status: Never smoker Does the pt drink ETOH?: No Does the pt have substance abuse?: No - POLST Patient has POLST: No PD ED PE NORMAL - Vitals Vital signs reviewed: Yes - General General: Alert and oriented X 3, Well developed/nourished, Other (appears uncomfortable, painful distress) - HEENT HEENT: PERRL, EOMI, Ears normal, Moist mucous membranes, Pharynx benign - Neck Neck: Supple, no meningeal sign - Derm Derm: No rash - Neuro Neuro: Alert and oriented X 3, box blank machine feeder 2-12 intact, No motor deficit, No sensory deficit, Normal speech Results - Vitals Vitals: Oxygen O2 Source Room air - Rads (name of study) CT head Radiology: Prelim report reviewed, See rad report PD MEDICAL DECISION MAKING - ED course Complexity details: reviewed results, re-evaluated patient, considered differential, d/w patient Departure - Departure Disposition: 01 Home, Self Care Clinical Impression: Sinusitis Condition: Good Instructions: ED Headache Sinus, ED Sinusitis Abx Tx Follow-Up: Karolyn Viera PA-C [Primary Care Provider] - (3-5 days if symptoms persist) Prescriptions: Amox/Clav 875/125 [Augmentin] 1 each PO Q12H #14 tablet HYDROcod/ACETAM 5/325 [[place] 5/325] 1 - 2 ea PO Q6H PRN #15 tablet PRN Reason: Pain Discharge Date/Time: 11/03/16 07:56
[2016-11-03] MEDS ORDERED: HYDROcod/ACETAM 5/325 MG TABLET PO STA (06:00)
[2016-11-03] MEDS ORDERED: HYDROcod/ACETAM 5/325 MG TABLET ONE ×2 (06:05→06:07)
--- NOTE | 2016-11-03 06:38 | CT Preliminary Report ---
Exam: CT Head W/O IMPRESSION: Normal head CT. [facility] SITE ID: [id number]
--- NOTE | 2016-11-03 06:41 | CT Report ---
EXAM: CT HEAD EXAM DATE: 11/03/2016 06:24 AM. CLINICAL HISTORY: Headache. COMPARISON: None. TECHNIQUE: Multiaxial CT images were obtained from the foramen magnum to the vertex. IV contrast: Non e. Reformats: Coronal. In accordance with CT protocol optimization, one or more of the following dose reduction techniques w ere utilized for this exam: automated exposure control, adjustment of mA and/or KV based on patient s ize, or use of iterative reconstructive technique. FINDINGS: Parenchyma: No intraparenchymal hemorrhage. No evidence of mass, midline shift, or CT findings of inf arction. Laird-white differentiation is distinct. Extraaxial Spaces: Normal for age. No subdural or epidural collections identified. Ventricles: Normal in size and position. Sinuses: Imaged paranasal sinuses, orbits, and mastoids show no significant abnormality. Bones: No evidence of fracture or calvarial defect. Other: None. IMPRESSION: Normal head CT. [facility] Referring Provider Line: [phone] SITE ID: [id number]
[2016-11-03] MEDS ORDERED: AMOX/CLAV 875 MG/125 MG TABLET PO STA (07:21)
[2016-11-03] MEDS ORDERED: AMOX/CLAV 875 MG/125 MG TABLET PO ONE (07:33)
[2016-11-03 07:56] VITALS: BP 109/61
== END 2016-11-03 07:56 | disposition home or self-care (01) ==
LOC: ED 04:53
DX: I10 Essential (primary) hypertension (principal); E11.9 Type 2 diabetes mellitus without complications; Z79.4 Long term (current) use of insulin; Z79.84 Long term (current) use of oral hypoglycemic drugs
CPT/HCPCS: 70450; 99283; A9270

== ENCOUNTER 2017-06-09 08:00 | Outpatient (CLI) | payer MEDICAID ==
[2017-06-09 13:25] LABS: BUN - BLOOD UREA NITROGEN 14 mg/dL (6-20); CALCIUM 8.6 mg/dL (8.5-10.3); CARBON DIOXIDE - CO2 28 mmol/L (21-32); CHLORIDE 101 mmol/L (101-111); CHOL/HDL RATIO 4.5 (<4.4); CHOLESTEROL 194 mg/dL; CREATININE 0.6 mg/dL (0.4-1.0); GFR - MDRD 105 (>89); GLUCOSE 146 mg/dL (70-100); HDL CHOLESTEROL 43 mg/dL; LDL CHOLESTEROL,CALCULATED 119 mg/dL; LDL/HDL RATIO 2.8 (<4.4); SODIUM 136 mmol/L (135-145); VLDL CHOLESTEROL 32 mg/dL
[2017-06-09 13:27] LABS: BASOPHILS # (AUTO) 0.1 10^3/uL (0.0-0.1); BASOPHILS % (AUTO) 1.2 %; EOSINOPHILS # (AUTO) 0.1 10^3/uL (0.0-0.7); EOSINOPHILS % (AUTO) 2.1 %; HGB - HEMOGLOBIN 11.7 g/dL (12.0-16.0); LYMPHOCYTES % (AUTO) 27.9 %; MEAN CORPUSCULAR HEMOGLOBIN 27.7 pg (27.0-31.0); MEAN CORPUSCULAR HGB CONC 32.2 g/dL (32.0-36.0); MEAN CORPUSCULAR VOLUME 86.2 fL (81.0-99.0); MONOCYTES # (AUTO) 0.7 10^3/uL (0.0-1.0); MONOCYTES % (AUTO) 9.2 %; NEUTROPHILS # (AUTO) 4.3 10^3/uL (1.5-6.6); NEUTROPHILS % (AUTO) 59.6 %; PLT - PLATELET COUNT 379 10^3/uL (130-450); RED BLOOD COUNT 4.23 10^6/uL (4.20-5.40); WHITE BLOOD COUNT 7.2 x10^3/uL (4.8-10.8)
[2017-06-09 15:05] LABS: HB2 TOTAL 12.3 g/dL; HEMOGLOBIN A1C 0.78 g/dL
== END 2017-06-09 08:01 | disposition home or self-care (01) ==
LOC: LAB.N 08:00
PROVIDERS: ATTEND Physician Assistant Medical
DX: Z00.00 Encounter for general adult medical examination without abnormal findings (principal); Z79.4 Long term (current) use of insulin; Z68.42 Body mass index [BMI] 45.0-49.9, adult; I10 Essential (primary) hypertension; E10.9 Type 1 diabetes mellitus without complications
CPT/HCPCS: 36415; 80048; 80061; 83036; 83721; 84443; 85025

== ENCOUNTER 2017-07-19 08:00 | Outpatient (CLI) | payer MEDICAID | END 2017-07-19 08:01 | LOC: LAB.R 08:00 | PROVIDERS: ATTEND Physician Assistant Medical | DX: R31.9 Hematuria, unspecified (principal); R30.0 Dysuria | CPT/HCPCS: 87086 ==

== ENCOUNTER 2017-09-10 08:00 | Outpatient (CLI) | payer MEDICAID ==
[2017-09-10 19:30] LABS: HB2 TOTAL 13.7 g/dL; HEMOGLOBIN A1C 1.04 g/dL; HEMOGLOBIN A1C % 9.1 % (4.6-6.2)
== END 2017-09-10 08:01 | disposition home or self-care (01) ==
LOC: LAB.N 08:00
PROVIDERS: ATTEND Physician Assistant Medical
DX: E10.9 Type 1 diabetes mellitus without complications (principal); Z79.4 Long term (current) use of insulin
CPT/HCPCS: 36415; 83036

== ENCOUNTER 2017-12-16 08:00 | Outpatient (CLI) | payer MEDICAID ==
[2017-12-16 13:18] LABS: HB2 TOTAL 14.3 g/dL; HEMOGLOBIN A1C 1.4 g/dL; HEMOGLOBIN A1C % 11.1 % (4.6-6.2)
== END 2017-12-16 08:01 | disposition home or self-care (01) ==
LOC: LAB.N 08:00
PROVIDERS: ATTEND Physician Assistant Medical
DX: E10.9 Type 1 diabetes mellitus without complications (principal)
CPT/HCPCS: 36415; 83036

== ENCOUNTER 2018-03-17 08:09 | Outpatient (CLI) | payer MEDICAID ==
[2018-03-17 14:02] LABS: HB2 TOTAL 13.8 g/dL; HEMOGLOBIN A1C 1.11 g/dL; HEMOGLOBIN A1C % 9.5 % (4.6-6.2)
== END 2018-03-17 23:59 ==
LOC: LAB.N 08:09
PROVIDERS: ATTEND Physician Assistant Medical
DX: E11.65 Type 2 diabetes mellitus with hyperglycemia (principal)
CPT/HCPCS: 36415; 83036

== ENCOUNTER 2018-06-16 08:00 | Outpatient (CLI) | payer MEDICAID ==
[2018-06-16 14:48] LABS: HB2 TOTAL 15.1 g/dL; HEMOGLOBIN A1C 1.43 g/dL; HEMOGLOBIN A1C % 10.8 % (4.6-6.2)
== END 2018-06-16 23:59 | disposition home or self-care (01) ==
LOC: LAB.N 08:00
PROVIDERS: ATTEND Physician Assistant Medical
DX: E11.65 Type 2 diabetes mellitus with hyperglycemia (principal)
CPT/HCPCS: 36415; 83036

== ENCOUNTER 2018-07-21 08:00 | Outpatient (CLI) | payer MEDICAID ==
[2018-07-21 12:17] LABS: BASOPHILS % (AUTO) 0.3 %; EOSINOPHILS # (AUTO) 0.1 10^3/uL (0.0-0.7); EOSINOPHILS % (AUTO) 1.4 %; HGB - HEMOGLOBIN 13.3 g/dL (12.0-16.0); LYMPHOCYTES # (AUTO) 1.9 10^3/uL (1.5-3.5); LYMPHOCYTES % (AUTO) 24.9 %; MEAN CORPUSCULAR HEMOGLOBIN 29.6 pg (27.0-31.0); MEAN CORPUSCULAR VOLUME 92.6 fL (81.0-99.0); MEAN PLATELET VOLUME 8.1 fL (7.9-10.8); MONOCYTES # (AUTO) 0.7 10^3/uL (0.0-1.0); MONOCYTES % (AUTO) 9.7 %; NEUTROPHILS # (AUTO) 4.8 10^3/uL (1.5-6.6); NEUTROPHILS % (AUTO) 63.7 %; PLT - PLATELET COUNT 357 10^3/uL (130-450); RED BLOOD COUNT 4.49 10^6/uL (4.20-5.40); RED CELL DISTRIBUTION WIDTH 14.8 % (12.0-15.0); WHITE BLOOD COUNT 7.6 x10^3/uL (4.8-10.8)
[2018-07-21 12:30] LABS: BILIRUBIN,URINE NEGATIVE (NEGATIVE); GLUCOSE, URINE (UA) NEGATIVE (NEGATIVE); KETONES,URINE (UA) TRACE mg/dL (NEGATIVE); LEUKOCYTE ESTERASE, URINE NEGATIVE (NEGATIVE); NITRITE,URINE NEGATIVE (NEGATIVE); OCCULT BLOOD,URINE LARGE (NEGATIVE); PH,URINE 5.5 PH (5.0-7.5); PROTEIN,URINE NEGATIVE (NEGATIVE); UROBILINOGEN,URINE 0.2 (NORMAL) E.U./dL (NORMAL)
[2018-07-21 12:46] LABS: BACTERIA,URINE None Seen /HPF (None Seen); CLARITY,URINE CLEAR (CLEAR); CRYSTALS,URINE 11-25 Ca Oxalate /LPF; SQUAMOUS EPITHELIAL CELL,UR MANY Squamous (<= Few)
== END 2018-07-21 23:59 | disposition home or self-care (01) ==
LOC: LAB.N 08:00
PROVIDERS: ATTEND Physician Assistant Medical
DX: N39.0 Urinary tract infection, site not specified (principal); E53.8 Deficiency of other specified B group vitamins
CPT/HCPCS: 36415; 81001; 82607; 82746; 85025; 87086

== ENCOUNTER 2018-09-26 08:00 | Outpatient (CLI) | payer MEDICAID ==
[2018-09-26 12:04] LABS: CREATININE 0.6 mg/dL (0.4-1.0)
[2018-09-26 12:33] LABS: HB2 TOTAL 12.6 g/dL; HEMOGLOBIN A1C 0.8 g/dL
== END 2018-09-26 08:01 | disposition home or self-care (01) ==
LOC: LAB.N 08:00
PROVIDERS: ATTEND Physician Assistant Medical
DX: E11.65 Type 2 diabetes mellitus with hyperglycemia (principal)
CPT/HCPCS: 36415; 80048; 83036

== ENCOUNTER 2018-12-27 07:19 | Outpatient (CLI) | payer MEDICAID ==
[2018-12-27 12:53] LABS: CALCIUM 8.9 mg/dL (8.5-10.3); CREATININE 0.7 mg/dL (0.4-1.0)
[2018-12-27 12:59] LABS: HB2 TOTAL 12.3 g/dL; HEMOGLOBIN A1C 1.09 g/dL; HEMOGLOBIN A1C % 10.3 % (4.6-6.2)
== END 2018-12-27 07:30 | disposition home or self-care (01) ==
LOC: LAB.N 07:19
PROVIDERS: ATTEND Physician Assistant Medical
DX: E11.9 Type 2 diabetes mellitus without complications (principal)
CPT/HCPCS: 36415; 80048; 83036

== ENCOUNTER 2019-04-28 07:45 | Outpatient (CLI) | payer MEDICAID ==
[2019-04-28 14:15] LABS: HB2 TOTAL 12.4 g/dL; HEMOGLOBIN A1C 1.31 g/dL; HEMOGLOBIN A1C % 11.8 % (4.6-6.2)
== END 2019-04-28 23:59 | disposition home or self-care (01) ==
LOC: LAB.N 07:45
PROVIDERS: ATTEND Physician Assistant Medical
DX: E11.9 Type 2 diabetes mellitus without complications (principal)
CPT/HCPCS: 36415; 83036

== ENCOUNTER 2020-06-24 07:44 | Outpatient (CLI) | payer MEDICAID ==
[2020-06-24 12:11] LABS: BASOPHILS # (AUTO) 0.1 10^3/uL (0.0-0.1); BASOPHILS % (AUTO) 0.7 %; EOSINOPHILS # (AUTO) 0.1 10^3/uL (0.0-0.7); EOSINOPHILS % (AUTO) 1.7 %; HCT - HEMATOCRIT 40.5 % (37.0-47.0); HGB - HEMOGLOBIN 11.5 g/dL (12.0-16.0); LYMPHOCYTES % (AUTO) 26.4 %; MEAN CORPUSCULAR HEMOGLOBIN 24.5 pg (27.0-31.0); MEAN CORPUSCULAR HGB CONC 28.4 g/dL (32.0-36.0); MEAN CORPUSCULAR VOLUME 86.2 fL (81.0-99.0); MEAN PLATELET VOLUME 10.2 fL (7.9-10.8); MONOCYTES # (AUTO) 0.7 10^3/uL (0.0-1.0); MONOCYTES % (AUTO) 9.6 %; NEUTROPHILS # (AUTO) 4.7 10^3/uL (1.5-6.6); NEUTROPHILS % (AUTO) 61.5 %; PLT - PLATELET COUNT 445 10^3/uL (130-450); RED CELL DISTRIBUTION WIDTH 16.8 % (12.0-15.0); WHITE BLOOD COUNT 7.6 x10^3/uL (4.8-10.8)
[2020-06-24 12:37] LABS: PLATELET ESTIMATE, MANUAL NORMAL (130-450,000) (NORMAL); PLATELET MORPHOLOGY NORMAL APPEARANCE (NORMAL); SLIDE REVIEW? Indicated
[2020-06-24 12:38] LABS: ALT ALANINE AMINOTRANSFERASE 18 IU/L (10-60); CHOL/HDL RATIO 3.9 (<4.4); CHOLESTEROL 152 mg/dL; HDL CHOLESTEROL 39 mg/dL; LDL CHOLESTEROL,CALCULATED 78 mg/dL; TRIGLYCERIDES 174 mg/dL; VLDL CHOLESTEROL 35 mg/dL
[2020-06-24 13:09] LABS: ESTIMATED AVERAGE GLUCOSE 255 mg/dL (70-100); HEMOGLOBIN A1c% 10.5 % (4.27-6.07)
== END 2020-06-24 07:45 | disposition home or self-care (01) ==
LOC: LAB.N 07:44
PROVIDERS: ATTEND Internal Medicine Endocrinology, Diabetes & Metabolism
DX: E11.9 Type 2 diabetes mellitus without complications (principal); Z79.4 Long term (current) use of insulin; E78.2 Mixed hyperlipidemia; D64.9 Anemia, unspecified
CPT/HCPCS: 36415; 80061; 83036; 83721; 84460; 85025

== ENCOUNTER 2023-11-29 07:07 | Outpatient (CLI) | payer BC ==
[2023-11-29 13:13] LABS: BUN - BLOOD UREA NITROGEN 10 mg/dL (6-20); CALCIUM 9.3 mg/dL (8.5-10.3); CARBON DIOXIDE - CO2 37 mmol/L (21-32); CHLORIDE 95 mmol/L (101-111); CHOL/HDL RATIO 3.1 (<4.4); CHOLESTEROL 116 mg/dL; CREATININE 0.5 mg/dL (0.6-1.3); GFR - MDRD 126 (>89); GLUCOSE 142 mg/dL (74-104); HDL CHOLESTEROL 37 mg/dL; LDL CHOLESTEROL,CALCULATED 39 mg/dL; LDL/HDL RATIO 1.1 (<4.4); POTASSIUM 4.2 mmol/L (3.5-4.5); SODIUM 135 mmol/L (135-145); TRIGLYCERIDES 201 mg/dL; VLDL CHOLESTEROL 40 mg/dL
[2023-11-29 14:52] LABS: ESTIMATED AVERAGE GLUCOSE 206 mg/dL (70-100); HEMOGLOBIN A1c% 8.8 % (4.27-6.07)
[2023-11-29 18:32] LABS: CREATININE,URINE 166.6 mg/dL; MICROALBUM/CREATININE RATIO,UR 198.7 ug/mg (<30.0); MICROALBUMIN,URINE 33.1 mg/dL
== END 2023-11-29 07:08 | disposition home or self-care (01) ==
LOC: LAB.N 07:07
PROVIDERS: ATTEND Internal Medicine Endocrinology, Diabetes & Metabolism
DX: E11.9 Type 2 diabetes mellitus without complications (principal); Z79.4 Long term (current) use of insulin
CPT/HCPCS: 36415; 80048; 80061; 82043; 82570; 83036; 83721